=== PATIENT | female | born 1990 | race Hispanic/Latino ===

== ENCOUNTER 2018-10-31 10:40 | Emergency (ER) | payer BC, MEDICAID ==
[2018-10-31] MEDS ORDERED: ONDANSETRON HCL 4 MG/2 ML VIAL ONE (11:18)
[2018-10-31 11:32] LABS: BASOPHILS % (AUTO) 0.2 % (0.0-5.0); EOSINOPHILS % (AUTO) 0.1 % (0.0-8.0); LYMPHOCYTES % (AUTO) 2.3 % (21.0-51.0); MEAN CORPUSCULAR HEMOGLOBIN 28.9 pg (27.0-33.0); MEAN CORPUSCULAR HGB CONC 33.7 g/dL (32.0-36.0); MEAN CORPUSCULAR VOLUME 85.9 fL (79-99); MONOCYTES % (AUTO) 1.7 % (3.0-13.0); NEUTROPHILS % (AUTO) 95.7 % (40.0-77.0); NUCLEATED RED BLOOD CELLS 0.1 % (0.0-0.19); PLATELET COUNT (AUTO) 306 K/uL (130-400); RED BLOOD CELL COUNT(AUTO) 4.78 MIL/uL (4.00-5.50); RED CELL DISTRIBUTION WIDTH 13.4 % (11.0-15.5); WHITE BLOOD COUNT (AUTO) 13.4 K/uL (4.8-10.8)
[2018-10-31 11:36] LABS: APPEARANCE,URINE Clear (CLEAR); BILIRUBIN,URINE Negative (NEGATIVE); COLOR,URINE Dark Yellow (YELLOW); GLUCOSE, URINE (UA) Negative (NEGATIVE); KETONES,URINE 15 mg/dL (NEGATIVE); LEUKOCYTE ESTERASE ,URINE Trace (NEGATIVE); NITRATE,URINE Negative (NEGATIVE); OCCULT BLOOD,URINE Negative (NEGATIVE); PH,URINE 5.5 (5.0-8.0); PROTEIN,URINE Negative (NEGATIVE)
[2018-10-31 11:42] LABS: CREATININE 0.6 mg/dL (0.5-1.5); POTASSIUM 3.8 mmol/L (3.5-5.1)
[2018-10-31 11:47] LABS: ALBUMIN 2.8 g/dL (3.5-5.0); BILIRUBIN,TOTAL 0.5 mg/dL (0.2-1.0); TOTAL PROTEIN, SERUM 7.1 g/dL (6.0-8.3)
[2018-10-31 11:50] LABS: BACTERIA,URINE Rare /HPF (None Seen); MUCUS,URINE Rare LPF (None Seen); RBC,URINE 0-1 /HPF (0-1); SPERM,URINE Rare /HPF (None Seen); SQUAMOUS EPITHELIAL CELL,UR Moderate /HPF (0-2); WBC,URINE 0-1 /HPF (0-1)
[2018-10-31] MEDS ORDERED: 0.9% SODIUM CHLORIDE 1000 ML IV BAG IV ONE (12:34)
== END 2018-10-31 13:11 | disposition home or self-care (01) ==
LOC: EDH 10:40
DX: O21.9 Vomiting of pregnancy, unspecified (principal); O24.911 Unspecified diabetes mellitus in pregnancy, first trimester; E08.9 Diabetes mellitus due to underlying condition without complications; Z87.891 Personal history of nicotine dependence; Z3A.13 13 weeks gestation of pregnancy
CPT/HCPCS: 36415; 80053; 81001; 83690; 85025; 96361; 96374; 99285; J2405; J7030

== ENCOUNTER 2018-11-07 16:34 | Emergency (ER) | payer BC, MEDICAID ==
[2018-11-07 18:22] LABS: APPEARANCE,URINE Clear (CLEAR); BILIRUBIN,URINE Negative (NEGATIVE); COLOR,URINE Yellow (YELLOW); GLUCOSE, URINE (UA) Negative (NEGATIVE); KETONES,URINE Negative (NEGATIVE); LEUKOCYTE ESTERASE ,URINE Negative (NEGATIVE); NITRATE,URINE Negative (NEGATIVE); OCCULT BLOOD,URINE Negative (NEGATIVE); PROTEIN,URINE Negative (NEGATIVE); UROBILINOGEN,URINE 0.2 mg/dL (0.2-1.0)
== END 2018-11-07 18:32 | disposition home or self-care (01) ==
LOC: EDH 16:34
DX: O26.891 Other specified pregnancy related conditions, first trimester (principal); R10.30 Lower abdominal pain, unspecified; E11.9 Type 2 diabetes mellitus without complications; Z3A.14 14 weeks gestation of pregnancy; Z90.89 Acquired absence of other organs
CPT/HCPCS: 76801; 81003

== ENCOUNTER 2018-11-23 17:40 | Emergency (ER) | payer BC, MEDICAID ==
[2018-11-23 18:00] LABS: APPEARANCE,URINE CLOUDY (CLEAR); BILIRUBIN,URINE NEGATIVE (NEGATIVE); COLOR,URINE YELLOW (YELLOW); GLUCOSE, URINE (UA) NEGATIVE (NEGATIVE); KETONES,URINE NEGATIVE (NEGATIVE); LEUKOCYTE ESTERASE ,URINE MODERATE (NEGATIVE); NITRATE,URINE NEGATIVE (NEGATIVE); OCCULT BLOOD,URINE LARGE (NEGATIVE); PH,URINE 7.5 (5.0-8.0); PROTEIN,URINE NEGATIVE (NEGATIVE); UROBILINOGEN,URINE 0.2 mg/dL (0.2-1.0)
[2018-11-23 18:37] LABS: WBC,URINE 26-50 /HPF (0-1)
[2018-11-23 18:38] LABS: BACTERIA,URINE Rare /HPF (None Seen)
[2018-11-23 18:39] LABS: SQUAMOUS EPITHELIAL CELL,UR Few /HPF (0-2)
[2018-11-23] MEDS ORDERED: CEFTRIAXONE SODIUM 1 GM ONE (19:07)
[2018-11-23 19:13] LABS: BASOPHILS % (AUTO) 0.9 % (0.0-5.0); EOSINOPHILS % (AUTO) 1.3 % (0.0-8.0); HEMATOCRIT 38.2 % (36-48); LYMPHOCYTES % (AUTO) 21.4 % (21.0-51.0); MEAN CORPUSCULAR HEMOGLOBIN 29.1 pg (27.0-33.0); MEAN CORPUSCULAR HGB CONC 33.4 g/dL (32.0-36.0); MEAN CORPUSCULAR VOLUME 87.2 fL (79-99); MONOCYTES % (AUTO) 5.3 % (3.0-13.0); NEUTROPHILS % (AUTO) 71.1 % (40.0-77.0); PLATELET COUNT (AUTO) 341 K/uL (130-400); RED BLOOD CELL COUNT(AUTO) 4.38 MIL/uL (4.00-5.50); RED CELL DISTRIBUTION WIDTH 13.9 % (11.0-15.5)
[2018-11-23 19:40] LABS: CREATININE 0.6 mg/dL (0.5-1.5); POTASSIUM 3.8 mmol/L (3.5-5.1)
== END 2018-11-23 19:38 | disposition home or self-care (01) ==
LOC: EDH 17:40
DX: O23.12 Infections of bladder in pregnancy, second trimester (principal); O24.312 Unspecified pre-existing diabetes mellitus in pregnancy, second trimester; O99.322 Drug use complicating pregnancy, second trimester; F12.10 Cannabis abuse, uncomplicated; Z98.890 Other specified postprocedural states; Z3A.17 17 weeks gestation of pregnancy
CPT/HCPCS: 36415; 80048; 81001; 85025; 87088; 96374; 99285; J0696

== ENCOUNTER 2018-11-27 23:18 | Observation (INO) | payer BC, MEDICAID ==
[~2018-11-27] VITALS: Ht 160 cm; Wt 96.2 kg
[2018-11-27 23:45] VITALS: BP 120/81
[2018-11-28 05:29] VITALS: BP 119/62
[2018-11-28] MEDS ORDERED: INSULIN NPH 100 UNIT/ML 3ML SQ SCH (07:30)
[2018-11-28] MEDS ORDERED: INSULIN HUMULIN R 100 UNIT/ML 3ML SQ SCH (07:30)
--- NOTE | 2018-11-28 08:00 | NUR ---
PATIENT SEEN BY MELONY JACKSON CNM AND CHANGED INSULIN TO BE ADMINISTERED IN A.M. DECREASED 10 UNITS TO 5 UNITS REGULAR AND NPH. ORDER ALSO GIVEN FOR HGB A1C AND CBC AND UDS.
[2018-11-28 08:15] VITALS: BP 127/68
[2018-11-28] MEDS ORDERED: GLYB5TAB8 PO (08:16)
[2018-11-28] MEDS ORDERED: PREN-94 PO (08:16)
[2018-11-28] MEDS ORDERED: CEFD300C3 PO (08:16)
[2018-11-28 08:50] LABS: BASOPHILS % (AUTO) 0.6 % (0.0-5.0); EOSINOPHILS % (AUTO) 1.5 % (0.0-8.0); HEMATOCRIT 39.3 % (36-48); LYMPHOCYTES % (AUTO) 22.8 % (21.0-51.0); MEAN CORPUSCULAR HGB CONC 33.5 g/dL (32.0-36.0); MEAN CORPUSCULAR VOLUME 86.8 fL (79-99); MONOCYTES % (AUTO) 4.9 % (3.0-13.0); NEUTROPHILS % (AUTO) 70.2 % (40.0-77.0); PLATELET COUNT (AUTO) 297 K/uL (130-400); RED BLOOD CELL COUNT(AUTO) 4.53 MIL/uL (4.00-5.50); RED CELL DISTRIBUTION WIDTH 14.1 % (11.0-15.5); WHITE BLOOD COUNT (AUTO) 9.4 K/uL (4.8-10.8)
[2018-11-28] MEDS ORDERED: CEFDINIR 250MG/5ML 60ML BOTTLE PO SCH (09:00)
[2018-11-28] MEDS ORDERED: INSULIN NPH 100 UNIT/ML 3ML SQ ONE (09:04)
[2018-11-28] MEDS ORDERED: INSULIN HUMULIN R 100 UNIT/ML 3ML ONE (09:04)
[2018-11-28] MEDS: INSULIN NPH 100 UNIT/ML 3ML SQ SCH ×2 (09:08→17:28)
[2018-11-28] MEDS: INSULIN HUMULIN R 100 UNIT/ML 3ML SQ SCH ×2 (09:09→17:29)
--- NOTE | 2018-11-28 09:15 | NUR ---
A.M. INSULIN GIVEN AND DEMONSTRATED TO PATIENT PROPER MIXING OF INSULINS AND AREAS OF ADMINISTRATION. VERBALIZED UNDERSTANDING.
[2018-11-28] MEDS ORDERED: WATER FOR INJECTION,STERILE 5 ML VIAL ONE (10:18)
[2018-11-28 11:19] VITALS: BP 123/59
--- NOTE | 2018-11-28 11:30 | NUR ---
PATIENT SEEN BY DIETITIAN AND WAS GIVEN LITERATURE ON DIET. PATIENT WAS PROVIDED WITH INFO ON DIABETES DURING AND MIXING INSULINS AND CARE OF INSULINS.
--- NOTE | 2018-11-28 12:15 | NUR ---
Diet Education RD Provided Gestational Diabetes Diet Education to patient. Patient with questions and reports mother has questions as well, however mother was not present. RD Provided diet education with Diet Recommendation handout. Patient verbalized understanding. Patient encouraged to contact RD for more questions. Please notify RD as nutritional concerns arise. Thank you. Addendum: 11/28/18 at [address]A [address] RD Amended: Links added.
[2018-11-28 13:34] LABS: AMPHET/METH SCREEN,URINE NEGATIVE (NEGATIVE); BARBITURATE SCREEN, URINE NEGATIVE (NEGATIVE); BENZODIAZEPINES SCREEN,URINE NEGATIVE (NEGATIVE); CANNABINOID SCREEN,URINE NEGATIVE (NEGATIVE); COCAINE SCREEN,URINE NEGATIVE (NEGATIVE); OPIATE SCREEN,URINE NEGATIVE (NEGATIVE); PHENCYCLIDINE SCREEN,URINE NEGATIVE (NEGATIVE)
[2018-11-28 15:33] VITALS: BP 122/78
--- NOTE | 2018-11-28 15:38 | NUR ---
HX OF POLY SUBSTANCE ABUSE Sw met with pt who states she has common law Gabino Webb Jr, who she stays with off and on, her primary residence is with her parents [place] [phone] Pt is independent, works, drives, on BCBS, Medicaid, WIC and Food stamps. is unemployed. Pt is 18weeks and states her mother has begun buying items for baby, but they are not ready at this time. Pt admits to marijuana abuse as recent as 2 days ago. Pt reports prior to being confirmed in Sep, she was a heavy daily user. States she smoked multiple times a day, but has cut way back to maybe every other day. Pt also states that she has used cocaine in past and last used crack cocaine in right before finding out she was . Discussed importance of not using drugs during and possible need for referral or intervention and pt denied, " I have cut way back". Sw stated "but you have not stopped all together". Educated her on CPS reporting should she be positive during , pt voiced understanding. Pt states she has been dx with ADD, but believes she is Bipolar, and has depression, and anxiety. Pt has never been on any psych meds. Flavia, nurse aware.
--- NOTE | 2018-11-28 17:15 | NUR ---
PATIENT INFORMED TO DEMONSTRATE MIXING OF INSULINS AND ADMINISTERING INSULIN AND DEMONSTRATED PROPERLY.
[2018-11-28 20:10] VITALS: BP 108/63
[2018-11-28] MEDS: CEFDINIR 300 MG PO SCH ×2 (22:30→23:22)
[2018-11-29 00:35] VITALS: BP 116/56
[2018-11-29 04:34] VITALS: BP 106/58
--- NOTE | 2018-11-29 07:55 | NUR ---
INSULIN INFORMED AND USED TEACH BACK REGARDING MIXING OF INSULINS TO PT, PT THEN VERBALIZED AND DEMONSTRATED HOW TO WITHDRAW AND ADMINISTER INSULINS TO RIGHT ABDOMEN, TOLERATED WELL; PT STATED HAS LITERATURE THAT SHE WILL CONTINUE TO READ REGARDING INJECTION SITES
[2018-11-29] MEDS: INSULIN HUMULIN R 100 UNIT/ML 3ML SQ SCH ×2 (07:57→17:00)
[2018-11-29] MEDS: INSULIN NPH 100 UNIT/ML 3ML SQ SCH ×2 (07:58→17:00)
[2018-11-29 08:13] VITALS: BP 112/66
[2018-11-29] MEDS: CEFDINIR 300 MG PO SCH (11:00)
[2018-11-29 11:23] VITALS: BP 113/71
--- NOTE | 2018-11-29 12:29 | NUR ---
ACTIVITY PT AMBULATING HALLWAY, STEADY GAIT, NO DIZZINESS NOR FATIGUE NOTED, TOLERATING WELL, NO C/O PAIN
[2018-11-29 15:59] VITALS: BP 114/74
--- NOTE | 2018-11-29 21:08 | NUR ---
DISCHARGE INSTRUCTIONS INSTRUCTIONS READ TO PT, TEACH BACK DONE, ANSWERED PT'S QUESTIONS AND CONCERNS, PT VERBALIZED AND SIGNED UNDERSTANDING
== END 2018-11-29 21:10 | disposition home or self-care (01) ==
LOC: WSH 23:18
PROVIDERS: ADMIT Obstetrics & Gynecology; ATTEND Obstetrics & Gynecology
DX: O24.112 Pre-existing type 2 diabetes mellitus, in pregnancy, second trimester (principal); O09.892 Supervision of other high risk pregnancies, second trimester; O99.212 Obesity complicating pregnancy, second trimester; Z3A.18 18 weeks gestation of pregnancy; Z79.899 Other long term (current) drug therapy
CPT/HCPCS: 36415; 76805; 80305; 82948 ×13; 83036; 85025; 96372 ×4; G0378 ×47; J1815 ×6

== ENCOUNTER 2018-12-07 01:01 | Emergency (ER) | payer BC, MEDICAID ==
[~2018-12-07 01:01] MED LIST: CEFD300C3 PO; PREN-94 PO
[2018-12-07] MEDS ORDERED: GUAIFENESIN-CODEINE 5 ML SYRUP ONE (01:10)
== END 2018-12-07 02:05 | disposition home or self-care (01) ==
LOC: EDH 01:01
DX: O99.512 Diseases of the respiratory system complicating pregnancy, second trimester (principal); J06.9 Acute upper respiratory infection, unspecified; E11.9 Type 2 diabetes mellitus without complications; Z3A.19 19 weeks gestation of pregnancy; Z87.891 Personal history of nicotine dependence
CPT/HCPCS: 87804

== ENCOUNTER 2019-01-13 22:55 | Emergency (ER) | payer BC, MEDICAID | END 2019-01-13 23:44 | disposition home or self-care (01) | LOC: EDH 22:55 | DX: Z02.89 Encounter for other administrative examinations (principal); E11.9 Type 2 diabetes mellitus without complications | CPT/HCPCS: 82948 ==

== ENCOUNTER 2023-08-01 08:16 | Emergency (ER) | payer BC, MEDICAID, OTHER ==
[~2023-08-01] VITALS: Ht 160 cm; Wt 102.8 kg
[2023-08-01 08:44] LABS: APPEARANCE,URINE TURBID (CLEAR); BILIRUBIN,URINE NEGATIVE (NEGATIVE); COLOR,URINE YELLOW (YELLOW); GLUCOSE, URINE (UA) >=1000 mg/dL (NEGATIVE); KETONES,URINE 5 mg/dL (NEGATIVE); LEUKOCYTE ESTERASE ,URINE TRACE Leu/uL (NEGATIVE); NITRATE,URINE POSITIVE (NEGATIVE); OCCULT BLOOD,URINE LARGE (NEGATIVE); PH,URINE 5.5 (5.0-8.0); PROTEIN,URINE 30 mg/dL (NEGATIVE); UROBILINOGEN,URINE 0.2 mg/dL (0.2-1.0)
[2023-08-01 08:54] LABS: ADD UA MICROSCOPIC YES
[2023-08-01 08:57] LABS: RBC,URINE 0-1 /HPF (0-1)
[2023-08-01 08:58] LABS: BACTERIA,URINE Many /HPF (None Seen); SQUAMOUS EPITHELIAL CELL,UR Moderate /HPF (0-2); WBC,URINE 51-100 /HPF (0-1)
[2023-08-01 09:37] LABS: BASOPHILS # (AUTO) 0.06 K/uL (0.00-0.20); BASOPHILS % (AUTO) 0.6 % (0.0-5.0); EOSINOPHILS # (AUTO) 0.11 K/uL (0.00-0.70); EOSINOPHILS % (AUTO) 1.1 % (0.0-8.0); HEMATOCRIT 40.3 % (36-48); IMMATURE GRANULOCYTE ABSOLUTE 0.04 K/uL (0-1); LYMPHOCYTES % (AUTO) 29.9 % (21.0-51.0); MEAN CORPUSCULAR HEMOGLOBIN 27.8 pg (27.0-33.0); MEAN CORPUSCULAR VOLUME 84.1 fL (79-99); MONOCYTES # (AUTO) 0.5 K/uL (0.1-1.0); MONOCYTES % (AUTO) 4.5 % (3.0-13.0); NEUTROPHILS # (AUTO) 6.4 K/uL (1.8-7.7); NEUTROPHILS % (AUTO) 63.5 % (40.0-77.0); PLATELET COUNT (AUTO) 333 K/uL (130-400); RED BLOOD CELL COUNT(AUTO) 4.79 MIL/uL (4.00-5.50); RED CELL DISTRIBUTION WIDTH 13.2 % (11.0-15.5); WHITE BLOOD COUNT (AUTO) 10.1 K/uL (4.8-10.8)
[2023-08-01 09:45] LABS: CREATININE 0.6 mg/dL (0.5-1.5)
[2023-08-01] MEDS ORDERED: CEFTRIAXONE 2GM VIAL IVPB ONE (10:00)
[2023-08-01 10:29] VITALS: BP 118/74; PULSE 88; RESP 16; O2SAT 99
[2023-08-01] MEDS ORDERED: 0.9%NACL 1000ML 1,000 ML IV ONE (11:00)
[2023-08-01] MEDS ORDERED: CEPH500B PO (11:34)
== END 2023-08-01 11:49 | disposition home or self-care (01) ==
LOC: EDH 08:16
DX: O36.4XX0 Maternal care for intrauterine death, not applicable or unspecified (principal); O23.41 Unspecified infection of urinary tract in pregnancy, first trimester; N39.0 Urinary tract infection, site not specified; Z3A.08 8 weeks gestation of pregnancy
CPT/HCPCS: 99285; 96365; 76801; 80048; 84702; 85025; 87077; 87088; 87186; 81001; 36415; J0696

== ENCOUNTER 2025-10-03 00:07 | Emergency (ER) | payer BC, OTHER ==
[~2025-10-03] VITALS: Ht 160 cm; Wt 99.8 kg
[~2025-10-03 00:07] MED LIST changes: +CEPH500B PO
--- NOTE | 2025-10-03 00:11 | NUR ---
UA CUP PROVIDED
--- NOTE | 2025-10-03 00:11 | NUR ---
COVID AND FLU SWABS COLLECTED FOR ANY FUTURE ORDERS
--- NOTE | 2025-10-03 00:16 | NUR ---
REPORT TO DR TAVERAS
[2025-10-03] MEDS ORDERED: AMOX500C2 PO (00:45)
[2025-10-03] MEDS ORDERED: OFLO5DRO21 OTIC (00:45)
--- NOTE | 2025-10-03 00:46 | ERN ---
General Chief Complaint: Earache Stated Complaint: BILATERAL EAR PAIN, CONGESTION RUNNY NOSE Time Seen by MD: 00:14 Source: patient History of Present Illness Initial Comments Patient is a 35-year-old female coming in complaining of bilateral long with the as he states that on the right ear she can not here to well. No fever or chills. Allergies: Coded Allergies: No Known Allergies (Unverified Allergy, Unknown, 11/28/18) Home Meds Active Scripts Cephalexin Monohydrate (Keflex) 500 Mg Cap, 500 MG PO QID for 10 Days, #40 CAP 0 Refills Prov:JARRED MATTHEWS Sr., MD 08/01/23 Reported Medications Cefdinir (Cefdinir) 300 Mg Capsule, 300 MG PO BID, CAP 11/28/18 #103/Iron Fumarate/FA ( Tablet) 1 Each Tablet, 1 EACH PO DAILY, TAB 11/28/18 Past Medical History Past Medical History: Diabetes-Type II Past Surgical History: Tonsillectomy, Social History Social History: Negative Female( History) LMP: Sep 15, 2025 : 3 Para: 2 Aborts: 1 ROS Dictation CONSTITUTIONAL: No chills, no fever, no weakness, no diaphoresis, no malaise. HEAD/FACE: No signs of trauma. EENT: No eye pain, no blurred vision, no tearing, no double vision, ear pain, ear discharge, no nose pain, no nasal congestion, no throat pain, no throat swelling, no mouth pain. RESPIRATORY: No cough, no orthopnea, no SOB, no stridor, no wheezing. CARDIOVASCULAR: No chest pain, no edema, no palpitations, no syncope. GASTROINTESTINAL/ABDOMINAL: No abdominal pain, no constipation, no diarrhea, no nausea, no vomiting. GENITOURINARY: No abnormal discharge, no dysuria, no frequent urination, no hematuria. No complaints of pain in the genitals. MUSCULOSKELETAL: No back pain, no gout, no joint pain, no joint swelling, no muscle pain, no muscle stiffness, no neck pain. INTEGUMENTARY: No change in color, no change in hair/nails, no dryness, no lesion, no lumps, no rash. NEUROLOGICAL/PSYCH: No anxiety, not depressed, no emotional problem, no headache, no numbness, no pre-existing deficit, no history of seizures, no tremors, no weakness. HEMATOLOGIC/LYMPHATIC: Not anemic, no history of blood clots, no apparent bleeding, no bruising, glands not swollen. All Systems Negative, Except as Noted. Physical Exam Physical Exam Dictation VITAL SIGNS: Reviewed. GENERAL APPEARANCE: Alert, oriented x3, no acute distress, obese. HEAD AND FACE: Non-traumatic. EYES: PERRL, pink conjunctivas, eyelid no trauma, anterior chamber clear. EARS: Pinnas intact and no signs of trauma or erythema. Right Ear canals discharge. Bilateral TMs erythema. NOSE: No discharge, no bleeding. OROPHARYNX: Mouth normal, teeth no caries, tongue pink. Pharynx clear, no erythema. Tonsils no exudates, no abscesses noted. Mucous membrane moist. NECK: Supple, non-tender, no thyromegaly, no masses, no JVD, no bruits. BREAST: Deferred. CHEST: No tenderness, no crepitus, no paradoxical movement, no retractions. LUNGS: Clear, well-ventilated, symmetric, no rales, no wheezing, no rhonchi, no stridor, good breath sounds bilaterally. HEART: Regular rate, regular rhythm, no murmur, no gallops. VASCULAR: No peripheral edema. ABDOMEN: Soft, positive bowel sounds, nondistended, no guarding, nontender, no rebound, no masses no hepatomegaly, no splenomegaly, no Garcia's sign, no hernias. RECTAL: Deferred. GENITAL: Deferred. NEUROLOGICAL: Normal speech, gross motor function intact, gross sensory function intact. MUSCULOSKELETAL: Neck nontender, full range of motion, back nontender, full range of motion. EXTREMITIES: Nontender, full range of motion. SKIN: Color pink, dry, no turgor, no rash, no lacerations, no abrasions, no contusions. LYMPHATICS: Deferred. Results Laboratory and Microbiology Labs Reviewed?: Yes MDM MDM: Differential diagnosis: Otitis media, otitis externa, Rationale: Tests considered and ordered secondary to shared decision making include: Previous outside records reviewed: Old ER visits. Risk of complication and/or morbidity or mortality of patient management: None Medications-Per medication reconciliation Need for hospitalization: Patient does not meet criteria for hospitalization. Need for emergency major/minor surgery: No Patient is a 35-year-old female coming in complaining of bilateral ear pain. On physical exam right ear canal is congested with the drainage, left tympanic membrane erythema. Patient will be discharged with oral and topical antibiotics. ED Course Vital Signs Date Time Temp Pulse Resp B/P (MAP) Pulse Ox O2 Delivery O2 Flow Rate FiO2 10/03/25 00:10 98.2 92 18 160/92 97 Room Air DX & DISP Disposition: Discharge Departure Impression: Primary Impression: Otitis externa Additional Impression: Otitis media Condition: Stable Scripts Ofloxacin (Ofloxacin) 0.3 % Drops 5 DROP OTIC BID, #5 ML 0 Refills Prov: JOSHUA TAVERAS MD 10/03/25 Amoxicillin (Amoxicillin) 500 Mg Capsule 1 CAP PO TID for 10 Days, #30 CAP 0 Refills Prov: JOSHUA TAVERAS MD 10/03/25 Additional Instructions: FOLLOW-UP WITH PRIMARY CARE PROVIDER IN 1 TO 2 DAYS. TAKE MEDICATIONS DIRECTED HERE IN THE EMERGENCY ROOM. OKAY TO CONTINUE HOME MEDICATIONS UNLESS OTHERWISE DISCUSSED DURING YOUR VISIT IN THE EMERGENCY ROOM TODAY. RETURN TO YOUR NEAREST EMERGENCY ROOM IF SYMPTOMS WORSEN OR IF THERE IS NO IMPROVEMENT. CALL 911 IF YOU NEED IMMEDIATE ASSISTANCE. TAKE TYLENOL [id number] NEEDED AND IF NO CONTRAINDICATIONS ARE PRESENT. INCREASE ORAL HYDRATION. A WOUND CULTURE OR URINE CULTURE WAS ORDERED HERE IN THE EMERGENCY ROOM DEPARTMENT PLEASE FOLLOW-UP WITH PRIMARY CARE PROVIDER AND ADVISE THEM TO GET REPORTS FROM OUR FACILITY. IF YOU HAD ANY MAUDE WRAP/SPLINTS THAT WERE APPLIED HERE, PLEASE DO NOT REMOVE THEM UNTIL YOU SEE YOUR PRIMARY CARE OR SPECIALTY. Referrals: Referrals: RY FRAGOSO MD (PCP) Time of Disposition: 00:44 JOSHUA TAVERAS MD Oct 03, 2025 00:46
[2025-10-03 00:58] VITALS: BP 155/89; PULSE 82; RESP 20; TEMP 98.2; O2SAT 100
[2025-10-07] MEDS ORDERED: AMOX1TAB16 PO (18:02)
== END 2025-10-03 01:03 | disposition home or self-care (01) ==
LOC: EDH 00:07
DX: H60.93 Unspecified otitis externa, bilateral (principal); H66.93 Otitis media, unspecified, bilateral; E11.9 Type 2 diabetes mellitus without complications; Z90.89 Acquired absence of other organs
CPT/HCPCS: 99283